=== PATIENT | male | born 1975 | race Caucasian/White ===

== ENCOUNTER 2022-02-04 10:20 | Emergency (ER) | payer OTHER ==
[2022-02-04 10:25] VITALS: TEMP 98.4
--- NOTE | 2022-02-04 10:39 | ED ---
Arrhythmia/Palpitations HPI - General Chief Complaint: Arrhythmia/Palpitations Stated Complaint: heart concerns, weakness Time Seen by Provider: 02/04/22 10:26 Source: patient, RN notes reviewed Mode of arrival: ambulatory Limitations: no limitations - History of Present Illness Initial Comments: This is a 46-year-old male who presents to the emergency department with palpitations. States that over the last month, he has had intermittent palpitations that he thinks are increasing in frequency and intensity. States that over the last week, they've been occurring almost every day, and they last for 5 minutes to a couple of hours at a time. These palpitations are not provoked by any activity and can occur when sitting still or moving around. He has associated chest pressure. Denies any radiation of pain into the jaw or down the arm and there is no associated nausea or vomiting. Also states that his endurance is much lower than it used to be, and any small activity such as tying his shoe causes him to feel short of breath. Denies any personal or family history of cardiac problems. He does smoke one pack daily and has done so for many years. He was recently told that he has low testosterone levels, however he is not sure how low and he is not being treated for this. Denies any fevers, chills, sore throat, cough, dyspnea, abdominal pain, nausea, vomiting, diarrhea, back pain, or headaches. MD Complaint: palpitations Onset/Timin -: month(s) Associated Symptoms: chest pain, shortness of breath - Related Data Home Medications Medication Instructions Recorded Confirmed No Known Home Medications 02/04/22 02/04/22 Allergies Allergy/AdvReac Type Severity Reaction Status Date / Time No Known Allergies Allergy Verified 02/04/22 11:05 Review of Systems ROS Statement: Those systems with pertinent positive or pertinent negative responses have been documented in the HPI. ROS Other: All systems not noted in ROS Statement are negative. Past Medical History Past Medical History: No Reported History History of Any Multi-Drug Resistant Organisms: None Reported Past Surgical History: No Surgical Hx Reported Past Psychological History: No Psychological Hx Reported Smoking Status: Current every day smoker Past Alcohol Use History: Occasional Past Drug Use History: None Reported General Exam Limitations: no limitations General appearance: alert, in no apparent distress Head exam: Present: atraumatic, normocephalic, normal inspection Respiratory exam: Present: normal lung sounds bilaterally. Absent: respiratory distress, wheezes, rales, rhonchi, stridor Cardiovascular Exam: Present: regular rate, normal rhythm, normal heart sounds. Absent: systolic murmur, diastolic murmur, rubs, gallop, clicks Extremities exam: Present: normal capillary refill. Absent: pedal edema, calf tenderness Neurological exam: Present: alert, oriented X3, CN II-XII intact Psychiatric exam: Present: normal affect, normal mood Skin exam: Present: warm, dry, intact, normal color. Absent: rash Course Vital Signs 02/04/22 02/04/22 02/04/22 10:23 11:16 13:24 Temperature 98.4 F Pulse Rate 102 H 75 71 Respiratory 20 18 18 Rate Blood Pressure 163/97 144/79 123/62 O2 Sat by Pulse 97 96 96 Oximetry EKG Findings - EKG Comments: EKG Findings:: Normal sinus rhythm. Normal axis. Ventricular rate 90 bpm, NC interval 168 ms, QRS duration 112 ms, QTC 387 ms. - EKG Results: EKG: interpreted by KEELY Medical Decision Making - Medical Decision Making This is a 46-year-old male who presents to the emergency department for palp itations and shortness of breath. Lab work obtained and found to be nonactionable, including a negative troponin and negative d-dimer. Urinalysis and urine drug screen were also negative. My interpretation of his chest x-ray identifies no localized consolidations or infiltrates. Patient does have multiple risk factors including his obesity and regular cigarette smoking. Case discussed with ED attending Dr. Boone, and because of the patient's description of symptoms with the exertional dyspnea, chest pressure, and palpitations, as well as his risk factors including obesity and tobacco abuse, it would be advised to have the patient admitted for observation in relation to the chest pain. This was discussed with the patient, who are declines admission at this time and would like to follow up with cardiology on an outpatient basis. Advised the patient that he will need to sign out AMA and he expresses understanding. He was also advised of the risks if he were to go home with an underlying cardiac process, including myocaridal infarction and . He again expresses understanding. He was given information for follow-up with cardiology and I instructed him to contact them for an appointment after discharge. Return precautions reviewed in depth, the patient is instructed to return to the emergency department with any new, worsening, or concerning symptoms. Patient verbalized understanding. This case was discussed in detail with the attending ED physician. Presentation, findings, and treatment plan discussed in detail as well. - Lab Data Result diagrams: 02/04/22 11:16 02/04/22 11:16 Lab Results 02/04/22 02/04/22 02/04/22 Range/Units 11:16 11:16 11:16 WBC 8.7 (3.8-10.6) k/uL RBC 4.62 (4.30-5.90) m/uL Hgb 15.6 (13.0-17.5) gm/dL Hct 44.5 (39.0-53.0) % MCV 96.3 (80.0-100.0) fL MCH 33.6 (25.0-35.0) pg MCHC 34.9 (31.0-37.0) g/dL RDW 12.7 (11.5-15.5) % Plt Count 221 (150-450) k/uL MPV 8.0 Neutrophils % 62 % Lymphocytes % 29 % Monocytes % 5 % Eosinophils % 2 % Basophils % 1 % Neutrophils # 5.4 (1.3-7.7) k/uL Lymphocytes # 2.5 (1.0-4.8) k/uL Monocytes # 0.4 (0-1.0) k/uL Eosinophils # 0.2 (0-0.7) k/uL Basophils # 0.1 (0-0.2) k/uL PT 9.9 (9.0-12.0) sec INR 0.9 (<1.2) APTT 23.8 (22.0-30.0) sec D-Dimer 0.36 (<0.60) mg/L FEU Sodium (137-145) mmol/L Potassium (3.5-5.1) mmol/L Chloride (98-107) mmol/L Carbon Dioxide (22-30) mmol/L Anion Gap mmol/L BUN (9-20) mg/dL Creatinine (0.66-1.25) mg/dL Est GFR (CKD-EPI)AfAm (>60 ml/min/1.73 sqM) Est GFR (CKD-EPI)NonAf (>60 ml/min/1.73 sqM) Glucose (74-99) mg/dL Calcium (8.4-10.2) mg/dL Magnesium (1.6-2.3) mg/dL Total Bilirubin (0.2-1.3) mg/dL AST (17-59) U/L ALT (4-49) U/L Alkaline Phosphatase (38-126) U/L Troponin I (0.000-0.034) ng/mL NT-Pro-B Natriuret Pep pg/mL Total Protein (6.3-8.2) g/dL Albumin (3.5-5.0) g/dL TSH (0.465-4.680) mIU/L Urine Color Yellow Urine Appearance Clear (Clear) Urine pH 7.0 (5.0-8.0) Ur Specific [place] 1.012 (1.001-1.035) Urine Protein Negative (Negative) Urine Glucose (UA) Trace H (Negative) Urine Ketones Negative (Negative) Urine Blood Negative (Negative) Urine Nitrite Negative (Negative) Urine Bilirubin Negative (Negative) Urine Urobilinogen <2.0 (<2.0) mg/dL Ur Leukocyte Esterase Negative (Negative) Urine Opiates Screen Not Detected (NotDetected) Ur Oxycodone Screen Not Detected (NotDetected) Urine Methadone Screen Not Detected (NotDetected) Ur Propoxyphene Screen Not Detected (NotDetected) Ur Barbiturates Screen Not Detected (NotDetected) U Tricyclic Antidepress Not Detected (NotDetected) Ur Phencyclidine Scrn Not Detected (NotDetected) Ur Amphetamines Screen Not Detected (NotDetected) U Methamphetamines Scrn Not Detected (NotDetected) U Benzodiazepines Scrn Not Detected (NotDetected) Urine Cocaine Screen Not Detected (NotDetected) U Marijuana (THC) Screen Not Detected (NotDetected) 02/04/22 02/04/22 02/04/22 Range/Units 11:16 11:16 11:16 WBC (3.8-10.6) k/uL RBC (4.30-5.90) m/uL Hgb (13.0-17.5) gm/dL Hct (39.0-53.0) % MCV (80.0-100.0) fL MCH (25.0-35.0) pg MCHC (31.0-37.0) g/dL RDW (11.5-15.5) % Plt Count (150-450) k/uL MPV Neutrophils % % Lymphocytes % % Monocytes % % Eosinophils % % Basophils % % Neutrophils # (1.3-7.7) k/uL Lymphocytes # (1.0-4.8) k/uL Monocytes # (0-1.0) k/uL Eosinophils # (0-0.7) k/uL Basophils # (0-0.2) k/uL PT (9.0-12.0) sec INR (<1.2) APTT (22.0-30.0) sec D-Dimer (<0.60) mg/L FEU Sodium 141 (137-145) mmol/L Potassium 4.2 (3.5-5.1) mmol/L Chloride 107 (98-107) mmol/L Carbon Dioxide 26 (22-30) mmol/L Anion Gap 8 mmol/L BUN 14 (9-20) mg/dL Creatinine 0.79 (0.66-1.25) mg/dL Est GFR (CKD-EPI)AfAm >90 (>60 ml/min/1.73 sqM) Est GFR (CKD-EPI)NonAf >90 (>60 ml/min/1.73 sqM) Glucose 164 H (74-99) mg/dL Calcium 9.1 (8.4-10.2) mg/dL Magnesium 2.1 (1.6-2.3) mg/dL Total Bilirubin 0.4 (0.2-1.3) mg/dL AST 24 (17-59) U/L ALT 41 (4-49) U/L Alkaline Phosphatase 55 (38-126) U/L Troponin I <0.012 (0.000-0.034) ng/mL NT-Pro-B Natriuret Pep 40 pg/mL Total Protein 6.9 (6.3-8.2) g/dL Albumin 4.4 (3.5-5.0) g/dL TSH 1.200 (0.465-4.680) mIU/L Urine Color Urine Appearance (Clear) Urine pH (5.0-8.0) Ur Specific [place] (1.001-1.035) Urine Protein (Negative) Urine Glucose (UA) (Negative) Urine Ketones (Negative) Urine Blood (Negative) Urine Nitrite (Negative) Urine Bilirubin (Negative) Urine Urobilinogen (<2.0) mg/dL Ur Leukocyte Esterase (Negative) Urine Opiates Screen (NotDetected) Ur Oxycodone Screen (NotDetected) Urine Methadone Screen (NotDetected) Ur Propoxyphene Screen (NotDetected) Ur Barbiturates Screen (NotDetected) U Tricyclic Antidepress (NotDetected) Ur Phencyclidine Scrn (NotDetected) Ur Amphetamines Screen (NotDetected) U Methamphetamines Scrn (NotDetected) U Benzodiazepines Scrn (NotDetected) Urine Cocaine Screen (NotDetected) U Marijuana (THC) Screen (NotDetected) - Radiology Data Radiology results: report reviewed, image reviewed Disposition Clinical Impression: Chest pain, Exertional dyspnea, Palpitations Disposition: Left Against Medical Advice Instructions (If sedation given, give patient instructions): Angina (ED), Chest Pain (ED), Heart Palpitations (ED) Additional Instructions: Return to the emergency department with any new, worsening, or concerning symptoms, especially with increasing chest pain or difficulty breathing. Please contact cardiology as listed below to make an appointment and discuss further testing. Follow up with your primary care provider in 1-2 days. Is patient prescribed a controlled substance at d/c from ED?: No Referrals: Dennis Swan MD [Primary Care Provider] - 1-2 days Wellington Guzman MD [STAFF PHYSICIAN] - 1-2 days
[2022-02-04 11:18] VITALS: RESP 18
[2022-02-04 11:24] LABS: Basophils # (A) 0.1 k/uL (0-0.2); Basophils % (A) 1 %; Eosinophils # (A) 0.2 k/uL (0-0.7); Eosinophils % (A) 2 %; HCT 44.5 % (39.0-53.0); HGB 15.6 gm/dL (13.0-17.5); Lymphocytes # (A) 2.5 k/uL (1.0-4.8); Lymphocytes % (A) 29 %; MCH 33.6 pg (25.0-35.0); MCHC 34.9 g/dL (31.0-37.0); MCV 96.3 fL (80.0-100.0); Monocytes # (A) 0.4 k/uL (0-1.0); Monocytes % (A) 5 %; Neutrophils # (A) 5.4 k/uL (1.3-7.7); Neutrophils % (A) 62 %; Platelet Count 221 k/uL (150-450); RBC 4.62 m/uL (4.30-5.90); RDW 12.7 % (11.5-15.5); WBC 8.7 k/uL (3.8-10.6)
[2022-02-04 11:36] LABS: Appearance,Urine Clear (Clear); Bilirubin,Urine Negative (Negative); Blood,Urine Negative (Negative); Color,Urine Yellow; Glucose,Urine (UA) Trace (Negative); Ketones,Urine Negative (Negative); Leukocyte Esterase,Urine Negative (Negative); Nitrite,Urine Negative (Negative); Protein,Urine Negative (Negative); Specific Gravity,Urine 1.012 (1.001-1.035); Urobilinogen,Urine <2.0 mg/dL (<2.0)
[2022-02-04 11:40] LABS: ALT 41 U/L (4-49); AST 24 U/L (17-59); African American GFR (CKD) >90 (>60 ml/min/1.73 sqM); Albumin 4.4 g/dL (3.5-5.0); Alkaline Phosphatase 55 U/L (38-126); Anion Gap 8 mmol/L; Blood Urea Nitrogen 14 mg/dL (9-20); Calcium 9.1 mg/dL (8.4-10.2); Carbon Dioxide 26 mmol/L (22-30); Chloride 107 mmol/L (98-107); Glucose 164 mg/dL (74-99); Magnesium 2.1 mg/dL (1.6-2.3); Non-African American GFR(CKD) >90 (>60 ml/min/1.73 sqM); Potassium 4.2 mmol/L (3.5-5.1); Sodium 141 mmol/L (137-145); Total Bilirubin 0.4 mg/dL (0.2-1.3); Total Protein 6.9 g/dL (6.3-8.2)
[2022-02-04 11:42] LABS: INR 0.9 (<1.2); Partial Thromboplastin Time 23.8 sec (22.0-30.0); Prothrombin Time 9.9 sec (9.0-12.0)
[2022-02-04 11:45] LABS: Amphetamine Screen,Urine Not Detected (NotDetected); Barbiturate Screen,Urine Not Detected (NotDetected); Benzodiazepines Screen,Urine Not Detected (NotDetected); Cocaine Screen,Urine Not Detected (NotDetected); Methadone Screen, Urine Not Detected (NotDetected); Opiate Screen,Urine Not Detected (NotDetected); Oxycodone Screen, Urine Not Detected (NotDetected); Phencyclidine Screen,Urine Not Detected (NotDetected); Tricyclic Antidepressant,Urine Not Detected (NotDetected); Urn Cannabinoid Scrn Not Detected (NotDetected)
--- NOTE | 2022-02-04 12:08 | XR ---
EXAMINATION TYPE: XR chest 2V DATE OF EXAM: 02/04/2022 COMPARISON: NONE TECHNIQUE: PA and lateral views submitted. HISTORY: CHEST PAIN FINDINGS: The lungs are clear and there is no pneumothorax, pleural effusion, or focal pneumonia. There 6mm n odule right upper lobe. Upper inflation. IMPRESSION: 1. No acute process. A 6 mm nodule right upper lobe most likely related to calcified granuloma. Short -term follow-up CT chest recommended in one to 2 months.
[2022-02-04 13:25] VITALS: BP 123/62; PULSE 71
== END 2022-02-04 13:31 | disposition left against medical advice (07) ==
LOC: EC 10:20
DX: R07.9 Chest pain, unspecified (principal); R06.09 Other forms of dyspnea; R00.2 Palpitations; F17.200 Nicotine dependence, unspecified, uncomplicated
CPT/HCPCS: 36415; 71046; 80053; 80306; 81003; 83735; 83880; 84443; 84484; 85025; 85379; 85610; 85730; 93005; 99285